=== PATIENT | male | born 1935 | race Two or more races ===

== ENCOUNTER 2017-04-01 05:09 | Emergency (ER) | payer OTHER ==
[~2017-04-01] VITALS: Ht 172.7 cm; Wt 72.6 kg
[2017-04-01] MEDS ORDERED: NABUMETONE500 MG PO (09:05)
== END 2017-04-01 09:11 | disposition home or self-care (01) ==
LOC: ER 05:09
DX: S63.8X1A Sprain of other part of right wrist and hand, initial encounter (principal); W22.8XXA Striking against or struck by other objects, initial encounter; Y93.89 Activity, other specified; Y92.098 Other place in other non-institutional residence as the place of occurrence of the external cause; Y99.8 Other external cause status

== ENCOUNTER → 2022-08-01 | Outpatient (CLI) | payer OTHER ==
[~2022-08-01] MED LIST: NABUMETONE500 MG PO
== END | disposition home or self-care (01) ==
LOC: MRI 11:41
PROVIDERS: ATTEND Neuromusculoskeletal Medicine & OMM
DX: I72.9 Aneurysm of unspecified site (principal); I65.1 Occlusion and stenosis of basilar artery; I65.09 Occlusion and stenosis of unspecified vertebral artery; I65.29 Occlusion and stenosis of unspecified carotid artery; Q28.2 Arteriovenous malformation of cerebral vessels; R41.3 Other amnesia; R47.01 Aphasia
CPT/HCPCS: 70546; 70553; Q9965; 70544

== ENCOUNTER 2023-01-31 07:50 | Outpatient (CLI) | payer OTHER | END 2023-01-31 07:51 | disposition home or self-care (01) | LOC: NUCLEAR 07:50 | PROVIDERS: ATTEND Neuromusculoskeletal Medicine & OMM | DX: G30.9 Alzheimer's disease, unspecified (principal); G31.09 Other frontotemporal neurocognitive disorder | CPT/HCPCS: 78814; A9552 ==